=== PATIENT | female | born 1985 | race Caucasian/White ===

== ENCOUNTER 2017-02-07 17:41 | Inpatient (IN) | payer BC ==
[~2017-02-07] VITALS: Ht 177.8 cm; Wt 87.0 kg
[2017-02-07] MEDS: D5%-LACTATED RINGERS 1,000 ML IV SCH (17:45)
[2017-02-07] MEDS: LACTATED RINGERS 1,000 ML IV SCH (17:45)
[2017-02-07] MEDS ORDERED: OXYTOCIN 30U/ 0.9% NaCL 500ML 500 ML IV ONE (17:45)
[2017-02-07] MEDS ORDERED: OXYTOCIN 30U/ 0.9% NaCL 500ML 500 ML ONE (17:48)
[2017-02-07] MEDS ORDERED: NEWBORN KIT ONE (17:48)
[2017-02-07] MEDS ORDERED: ONDANSETRON 2MG/ML, 2ML IVPush PRN (18:00)
[2017-02-07] MEDS ORDERED: FENTANYL PF 100 MCG/2ML IV PRN (18:00)
[2017-02-07] MEDS ORDERED: SODIUM CITRATE/CITRIC ACID 30 ML UDC PO PRN (18:00)
[2017-02-07] MEDS ORDERED: FENTANYL PF 100 MCG/2ML IVPush PRN (18:00)
[2017-02-07] MEDS ORDERED: TERBUTALINE 1 MG/ML, 1ML IVPush PRN (18:00)
[2017-02-07] MEDS ORDERED: METOCLOPRAMIDE 5 MG/ML, 2ML IVPush PRN (18:00)
[2017-02-07] MEDS ORDERED: MISOPROSTOL 200 MCG TABLET ONE (18:01)
[2017-02-07] MEDS ORDERED: LIDOCAINE 1%, 20ML ONE ×2 (18:01→18:21)
[2017-02-07] MEDS ORDERED: OXYTOCIN 10 UNITS/ML, 1ML ONE (18:11)
[2017-02-07] MEDS: OXYTOCIN 30U/ 0.9% NaCL 500ML 500 ML IV SCH (18:50)
[2017-02-07] MEDS ORDERED: DOCUSATE 100 MG CAPSULE PO PRN (19:00)
[2017-02-07] MEDS ORDERED: METOCLOPRAMIDE 5 MG/ML, 2ML IV PRN (19:00)
[2017-02-07] MEDS ORDERED: ONDANSETRON 2MG/ML, 2ML IV PRN (19:00)
[2017-02-07] MEDS ORDERED: MISOPROSTOL 200 MCG TABLET PR PRN (19:00)
[2017-02-07] MEDS ORDERED: METHYLERGONOVINE 0.2 MG/ML IM PRN (19:00)
[2017-02-07] MEDS ORDERED: OXYcodone/APAP 5/325MG TABLET PO PRN ×2 (19:00)
[2017-02-07] MEDS ORDERED: ACETAMINOPHEN 325 MG TABLET PO PRN (19:00)
[2017-02-07 20:15] VITALS: BP 109/66
[2017-02-07] MEDS: IBUPROFEN 600 MG TABLET PO PRN (20:16)
[2017-02-08 00:20] VITALS: BP 110/76
[2017-02-08] MEDS: LACTATED RINGERS 1,000 ML IV SCH (01:45)
[2017-02-08] MEDS: D5%-LACTATED RINGERS 1,000 ML IV SCH (01:45)
[2017-02-08] MEDS: IBUPROFEN 600 MG TABLET PO PRN ×3 (02:12→14:58)
[2017-02-08] MEDS: OXYTOCIN 30U/ 0.9% NaCL 500ML 500 ML IV SCH (02:17)
[2017-02-08 04:30] VITALS: BP 108/71
[2017-02-08 07:00] VITALS: BP 109/67
[2017-02-08] MEDS ORDERED: PRENATAL VIT/IRON/FA 1 EACH TABLET PO SCH (09:00)
[2017-02-08 11:00] VITALS: BP 108/74
== END 2017-02-08 16:10 | disposition home or self-care (01) | DRG 774 ==
LOC: LDOP 17:41 → LDIP 17:45 → 2NW 19:40
PROVIDERS: ADMIT Obstetrics & Gynecology; ATTEND Obstetrics & Gynecology
PROC: 10E0XZZ Delivery of Products of Conception, External Approach (ICD-10-PCS; principal; 2017-02-07)
PROC: 0HQ9XZZ Repair Perineum Skin, External Approach (ICD-10-PCS; 2017-02-07)
DX: O99.52 Diseases of the respiratory system complicating childbirth (principal); O99.42 Diseases of the circulatory system complicating childbirth; O99.62 Diseases of the digestive system complicating childbirth; O70.0 First degree perineal laceration during delivery; K21.9 Gastro-esophageal reflux disease without esophagitis; J45.909 Unspecified asthma, uncomplicated; I34.1 Nonrheumatic mitral (valve) prolapse; O99.344 Other mental disorders complicating childbirth; F41.9 Anxiety disorder, unspecified; O62.3 Precipitate labor; Z37.0 Single live birth; Z3A.38 38 weeks gestation of pregnancy; Z23 Encounter for immunization
CPT/HCPCS: 36415; 85025; 86850; 86900